=== PATIENT | female | born 1945 | race Caucasian/White ===

== ENCOUNTER 2019-12-25 15:54 | Inpatient (IN) | payer MEDICARE ==
[~2019-12-25] VITALS: Ht 160 cm; Wt 83.9 kg
[2019-12-25] MEDS ORDERED: LABETALOL HCL 20 ML ONE (16:15)
[2019-12-25] MEDS ORDERED: ASPIRIN 81 MG CHEW TAB PO ONE (16:15)
[2019-12-25] MEDS ORDERED: NITROGLYCERIN 2% OINT 1 GM PKT TOP ONE (16:15)
[2019-12-25] MEDS ORDERED: NITROGLYCERIN 2% OINT 1 GM PKT ONE (16:15)
[2019-12-25] MEDS ORDERED: ONDANSETRON HCL INJ 2MG/ML 2ML 2 MG/ML VIAL IV PRN ×2 (16:15→19:30)
[2019-12-25] MEDS ORDERED: ACETAMINOPHEN 325 MG TAB PO NR (16:15)
[2019-12-25] MEDS ORDERED: LABETALOL HCL 5 MG/ML 20ML VIAL IV NR (16:30)
[2019-12-25] MEDS ORDERED: FAMOTIDINE 20 MG TAB ONE (16:59)
[2019-12-25] MEDS ORDERED: METOPROLOL TARTRATE 50 MG TAB ONE (16:59)
[2019-12-25] MEDS ORDERED: CEFTRIAXONE SOD 1 GM VIAL IV NR (17:00)
[2019-12-25] MEDS: FAMOTIDINE 20 MG TAB PO SCH (17:03)
[2019-12-25] MEDS: METOPROLOL TARTRATE 25 MG TAB PO SCH (17:03)
[2019-12-25] MEDS ORDERED: AMPICILLIN TRI500 MG (17:04)
[2019-12-25] MEDS ORDERED: LOSARTAN POTASS50 MG (17:04)
[2019-12-25] MEDS ORDERED: CEFTRIAXONE SOD 1 GM VIAL ONE (17:14)
[2019-12-25] MEDS ORDERED: LORAZEPAM INJ 2 MG/ML VIAL ONE (17:14)
[2019-12-25] MEDS ORDERED: LORAZEPAM INJ 2 MG/ML VIAL IV NR ×2 (17:15)
[2019-12-25] MEDS ORDERED: ZOLPIDEM TARTRATE 5 MG TAB PO PRN (19:30)
[2019-12-25] MEDS ORDERED: IBUPROFEN 200 MG TAB PO PRN (19:30)
[2019-12-25] MEDS ORDERED: ENALAPRILAT IV INJ 1.25 MG/ML VIAL IV PRN (19:30)
[2019-12-25] MEDS ORDERED: MORPHINE SULFATE 2 MG/ML SYR 1ML IV PRN (19:30)
[2019-12-25] MEDS ORDERED: DIPHENHYDRAMINE HCL INJ 50 MG/ML VIAL IV PRN (19:30)
[2019-12-25] MEDS ORDERED: ACETAMINOPHEN 325 MG TAB PO PRN (19:30)
[2019-12-25 20:55] VITALS: BP 166/70
[2019-12-25 20:56] VITALS: BP 170/82
[2019-12-25] MEDS: SIMVASTATIN 40 MG TAB PO SCH (21:08)
[2019-12-25 21:44] VITALS: BP 166/70
[2019-12-26] VITALS (9 sets, daily range): BP systolic 140–175; BP diastolic 68–88
[2019-12-26] MEDS: FAMOTIDINE 20 MG TAB PO SCH ×2 (04:50→17:00)
[2019-12-26] MEDS: METOPROLOL TARTRATE 25 MG TAB PO SCH ×3 (04:50→20:47)
[2019-12-26 05:15] LABS: CHOL/HDL RATIO 4.2 (3.0-3.6); PHOSPHORUS 3.8 MG/DL (2.3-4.7)
[2019-12-26 05:49] LABS: CREATINE KINASE MB 1.5 ng/mL (0-5.0)
[2019-12-26] MEDS ORDERED: ZOLPIDEM TARTRATE 5 MG TAB PO PRN (06:15)
[2019-12-26] MEDS ORDERED: DOCUSATE SODIUM 100 MG CAP PO PRN (06:15)
[2019-12-26 08:45] LABS: BASOPHILS # (AUTO) 0.1 (0.0-0.1); BASOPHILS % 0.5 % (0.0-1.0); EOSINOPHILS # (AUTO) 0.4 (0.0-0.4); EOSINOPHILS % 3.9 % (0.0-6.0); HEMATOCRIT 41.8 % (34.2-44.1); LYMPHOCYTES # (AUTO) 2.4 (1.0-3.2); LYMPHOCYTES % 25.1 % (18.0-39.1); MEAN CORPUSCULAR HGB CONC 31.1 g/dL (31-35); MEAN CORPUSCULAR VOLUME 93.1 fL (81-99); MONOCYTES # (AUTO) 0.8 (0.2-0.8); MONOCYTES % 8.2 % (4.4-11.3); NEUTROPHILS % 61.9 % (38.7-80.0); PLATELET COUNT 315 x10e3/uL (140-360); RED BLOOD COUNT 4.49 x10e6/uL (3.6-5.1); RED CELL DISTRIBUTION WIDTH 14.8 % (11.7-14.4)
[2019-12-26 09:00] LABS: ALBUMIN 3.6 g/dL (3.5-5.0); ANION GAP 17.3 mmol/L (8-16); CALCIUM 9.2 mg/dL (8.4-10.2); CREATININE, SERUM 1.01 mg/dL (0.57-1.11); POTASSIUM 4.3 mmol/L (3.5-5.1)
[2019-12-26] MEDS ORDERED: VALSARTAN 160 MG TAB PO SCH (09:00)
[2019-12-26] MEDS: ASPIRIN 325 MG TAB EC PO SCH (09:19)
[2019-12-26 20:05] LABS: CREATINE KINASE MB 1.7 ng/mL (0-5.0)
[2019-12-26] MEDS: SIMVASTATIN 40 MG TAB PO SCH (20:47)
[2019-12-27] VITALS (7 sets, daily range): BP systolic 142–212; BP diastolic 44–85
[2019-12-27] MEDS: FAMOTIDINE 20 MG TAB PO SCH ×2 (04:47→15:42)
[2019-12-27] MEDS: METOPROLOL TARTRATE 25 MG TAB PO SCH (07:36)
[2019-12-27] MEDS: NICOTINE 14 MG/EA PATCH TOP SCH (07:37)
[2019-12-27] MEDS ORDERED: REGADENOSON 0.4 MG/5 ML SYR IV ONE (08:14)
[2019-12-27] MEDS ORDERED: IBUPROFEN 600 MG TAB PO PRN (08:15)
[2019-12-27] MEDS: VALSARTAN 160 MG TAB PO SCH (15:42)
[2019-12-27] MEDS: ASPIRIN 325 MG TAB EC PO SCH (15:42)
[2019-12-27] MEDS: SIMVASTATIN 40 MG TAB PO SCH (20:21)
[2019-12-27] MEDS ORDERED: GUAIFENESIN 600 MG TAB PO PRN (21:00)
[2019-12-27] MEDS ORDERED: METOPROLOL TARTRATE 25 MG TAB PO SCH (21:00)
[2019-12-27] MEDS: GUAIFENESIN 600 MG TAB PO SCH (21:12)
[2019-12-28] VITALS (9 sets, daily range): BP systolic 134–168; BP diastolic 61–88
[2019-12-28] MEDS: FAMOTIDINE 20 MG TAB PO SCH ×2 (04:48→17:24)
[2019-12-28] MEDS ORDERED: HYDROCHLOROTHIAZIDE 25 MG TAB PO SCH (06:30)
[2019-12-28] MEDS: HYDRALAZINE HCL 25 MG TAB PO SCH ×3 (06:50→17:24)
[2019-12-28] MEDS: ASPIRIN 325 MG TAB EC PO SCH (08:52)
[2019-12-28] MEDS: VALSARTAN 160 MG TAB PO SCH (08:53)
[2019-12-28] MEDS: NICOTINE 14 MG/EA PATCH TOP SCH (08:53)
[2019-12-28] MEDS: GUAIFENESIN 600 MG TAB PO SCH ×2 (08:53→17:24)
[2019-12-28] MEDS: METOPROLOL TARTRATE 50 MG TAB PO SCH ×2 (08:53→20:48)
[2019-12-28] MEDS: HYDROCHLOROTHIAZIDE 25 MG TAB PO SCH (08:59)
[2019-12-28] MEDS ORDERED: METOPROLOL TARTRATE 25 MG TAB PO SCH (09:00)
[2019-12-28 10:40] LABS: CALCIUM 9.6 mg/dL (8.4-10.2); CREATININE, SERUM 0.98 mg/dL (0.57-1.11)
[2019-12-28] MEDS ORDERED: SODIUM CHLORIDE 0.9% 1000ML 1,000 ML IV ONE (11:30)
[2019-12-28] MEDS ORDERED: IOPAMIDOL 370 MG/ML 200 ML INFUS..BTL INJ ONE (12:49)
[2019-12-28] MEDS ORDERED: SODIUM CHLORIDE 0.9% 50ML 50 ML ONE (12:49)
[2019-12-28] MEDS: SIMVASTATIN 40 MG TAB PO SCH (20:48)
[2019-12-29 03:47] VITALS: BP 129/69
[2019-12-29] MEDS: FAMOTIDINE 20 MG TAB PO SCH (05:46)
[2019-12-29] MEDS: VALSARTAN 160 MG TAB PO SCH (08:23)
[2019-12-29] MEDS: HYDROCHLOROTHIAZIDE 25 MG TAB PO SCH (08:23)
[2019-12-29] MEDS: ASPIRIN 325 MG TAB EC PO SCH (08:23)
[2019-12-29] MEDS: METOPROLOL TARTRATE 50 MG TAB PO SCH (08:23)
[2019-12-29] MEDS: GUAIFENESIN 600 MG TAB PO SCH (08:24)
[2019-12-29] MEDS: NICOTINE 14 MG/EA PATCH TOP SCH (08:24)
[2019-12-29 08:42] VITALS: BP 158/86
[2019-12-29] MEDS ORDERED: LIDOCAINE HCL 4% 50 ML BTL ONE (08:55)
[2019-12-29] MEDS: HYDRALAZINE HCL 25 MG TAB PO SCH (09:00)
[2019-12-29 09:40] VITALS: BP 158/86
[2019-12-29 11:49] VITALS: BP 110/82
[2019-12-29] MEDS ORDERED: ETOMIDATE 2 MG/ML 10 ML INJ IV ONE (11:53)
[2019-12-29] MEDS ORDERED: PROPOFOL IV EMULSION 10 MG/ML 20 ML VIAL ONE (11:53)
[2019-12-29] MEDS ORDERED: SEVOFLURANE INHAL SOLN 250 ML PEN BTL ONE (11:53)
[2019-12-29] MEDS ORDERED: ASPIRIN EC81 MG PO (15:02)
[2019-12-29] MEDS ORDERED: FAMOTIDINE20 MG PO (15:02)
[2019-12-29] MEDS ORDERED: HYDRALAZINE HCL25 MG PO (15:02)
[2019-12-29] MEDS ORDERED: NICODERM CQ1 EAC1 TOP (15:02)
[2019-12-29] MEDS ORDERED: DIOVAN160 MG PO (15:02)
[2019-12-29] MEDS ORDERED: ESIDRIX25 MG PO (15:02)
[2019-12-29] MEDS ORDERED: MUCINEX600 MG PO (15:02)
[2019-12-29] MEDS ORDERED: SIMVASTATIN40 MG PO (15:02)
[2019-12-29] MEDS ORDERED: METOPROLOL TART50 MG PO (15:02)
[2019-12-29] MEDS ORDERED: COLACE100 MG PO (15:02)
[2019-12-29] MEDS ORDERED: ONDANSETRON HCL 4 MG ORAL DISINTEGRATING TAB PO PRN (15:30)
[2019-12-29 16:44] VITALS: BP 145/83
== END 2019-12-29 16:38 | disposition home or self-care (01) | DRG 180 ==
LOC: FSED 16:05 → ERHOLD 16:16 → IMCU 19:25 → MED/SURG2 12-26 22:46 → OBSVTOIN 12-27 19:00
PROVIDERS: ADMIT Internal Medicine; ATTEND Internal Medicine
PROC: 0B938ZX Drainage of Right Main Bronchus, Via Natural or Artificial Opening Endoscopic, Diagnostic (ICD-10-PCS; 2019-12-29)
PROC: 0B9C8ZX Drainage of Right Upper Lung Lobe, Via Natural or Artificial Opening Endoscopic, Diagnostic (ICD-10-PCS; 2019-12-29)
PROC: 0BB38ZX Excision of Right Main Bronchus, Via Natural or Artificial Opening Endoscopic, Diagnostic (ICD-10-PCS; principal; 2019-12-29 10:30)
PROC: 0BB68ZZ Excision of Right Lower Lobe Bronchus, Via Natural or Artificial Opening Endoscopic (ICD-10-PCS; 2019-12-29 10:30)
DX: C34.01 Malignant neoplasm of right main bronchus (principal); J18.9 Pneumonia, unspecified organism; I24.9 Acute ischemic heart disease, unspecified; I25.110 Atherosclerotic heart disease of native coronary artery with unstable angina pectoris; F17.200 Nicotine dependence, unspecified, uncomplicated; I10 Essential (primary) hypertension; I16.0 Hypertensive urgency; Z20.828 Contact with and (suspected) exposure to other viral communicable diseases
CPT/HCPCS: 31623; 31625; 36415; 71045; 71260; 78452; 80048; 80053; 80061; 82310; 82550; 82553; 82948; 83036; 84100; 84443; 84484; 85025; 88104; 88112; 88304; 88305; 88342; 93005; 93017; 93306; 99284; A9502; G0378; J0696; J2060; J2405; J7030; Q9967; U0002